=== PATIENT | male | born 1960 | race Caucasian/White ===

== ENCOUNTER 2023-09-05 11:52 | Emergency (ER) | payer SELFPAY ==
[~2023-09-05] VITALS: Ht 175.2 cm; Wt 63.5 kg
[2023-09-05] MEDS ORDERED: METOPROLOL SUC100 M1 PO (12:02)
[2023-09-05] MEDS ORDERED: ROSUVASTATIN CA20 MG PO (12:03)
[2023-09-05 12:34] LABS: BASO % 0.6 % (0.0-1.0); EOS # 0.1 10*3/uL (0.0-0.4); EOS % 0.8 % (1.0-4.0); HEMATOCRIT 46.1 % (42.0-52.0); LYMPH # 1.3 10*3/uL (1.3-4.4); LYMPH % 20.6 % (27.0-41.0); MEAN CELL VOLUME 97.9 fl (80.0-94.0); MEAN CORPUSCULAR HGB 34.4 pg (27.0-31.0); MEAN CORPUSCULAR HGB CONC 35.1 g/dl (33.0-37.0); MEAN PLATELET VOLUME 8.7 fl (9.6-12.3); MONO # 0.3 10*3/uL (0.1-1.0); MONO % 5.5 % (3.0-9.0); NEUT # 4.4 10*3/uL (2.3-7.9); NEUT % 72.2 % (47.0-73.0); PLATELET COUNT AUTOMATED 201 10*3/uL (130-400); RED BLOOD COUNT 4.71 10*6/uL (4.50-5.90); RED CELL DISTRI WIDTH 12.8 % (0-14.5); WHITE BLOOD COUNT 6.2 10*3/uL (4.8-10.8)
[2023-09-05 12:44] LABS: ACT PARTIAL THROMBO TIME 29.4 SECONDS (20.0-32.1)
[2023-09-05 12:54] LABS: BUN 5 mg/dl (9-23); CHLORIDE 103 mmol/L (98-107); POTASSIUM 4.4 mmol/L (3.4-5.1)
== END 2023-09-05 13:23 | disposition home or self-care (01) ==
LOC: ED 11:52
PROVIDERS: Nurse Practitioner
DX: R07.9 Chest pain, unspecified (principal); R11.0 Nausea; I10 Essential (primary) hypertension; E78.5 Hyperlipidemia, unspecified